=== PATIENT | female | born 1960 ===

== ENCOUNTER 2019-03-12 10:45 | Day surgery (SDC) | payer OTHER | END 2019-03-12 14:32 | disposition home or self-care (01) | LOC: AMB-ENDOS 10:45 | DX: C19 Malignant neoplasm of rectosigmoid junction (principal); K64.8 Other hemorrhoids ==

== ENCOUNTER 2019-03-21 07:31 | Outpatient (CLI) | payer OTHER | END 2019-03-21 07:57 | disposition home or self-care (01) | LOC: NUCLEAR 07:31 | DX: I65.23 Occlusion and stenosis of bilateral carotid arteries (principal); G47.30 Sleep apnea, unspecified; I20.9 Angina pectoris, unspecified; J45.901 Unspecified asthma with (acute) exacerbation | CPT/HCPCS: 78452; 93017; A9500; J0153 ==

== ENCOUNTER 2019-04-08 11:45 | Inpatient (IN) | payer OTHER ==
[~2019-04-08] VITALS: Ht 154.9 cm; Wt 85.7 kg
[2019-04-08] MEDS ORDERED: BENICAR40 MG PO (13:13)
[2019-04-08] MEDS ORDERED: CATAPRES0.3 M1 PO (13:13)
[2019-04-08] MEDS ORDERED: PROPANADOL PO (13:14)
[2019-04-08] MEDS ORDERED: ZYRTEC10 M3 PO (13:15)
[2019-04-08] MEDS ORDERED: CRESTOR5 MG PO (13:15)
[2019-04-08] MEDS ORDERED: FIBRIK CAPSULE1 EACH PO (13:16)
[2019-04-08] MEDS ORDERED: TORSEMIDE5 MG PO (13:16)
[2019-04-08] MEDS ORDERED: PEPCID AC20 MG PO (13:16)
[2019-04-08] MEDS ORDERED: XOPENEX HFA15 GM IH (13:17)
== END 2019-04-21 10:32 | disposition home or self-care (01) | DRG 331 ==
LOC: O/R 11:45 → SURH 04-18 08:14 → O/R 04-18 09:00 → SURH 04-18 20:21
PROVIDERS: ADMIT Colon & Rectal Surgery
PROC: 07TB4ZZ Resection of Mesenteric Lymphatic, Percutaneous Endoscopic Approach (ICD-10-PCS; 2019-04-18)
PROC: 0DJD8ZZ Inspection of Lower Intestinal Tract, Via Natural or Artificial Opening Endoscopic (ICD-10-PCS; 2019-04-18)
PROC: 4A1BXSH Monitoring of Gastrointestinal Vascular Perfusion using Indocyanine Green Dye, External Approach (ICD-10-PCS; 2019-04-18)
PROC: 3E0F7GC Introduction of Other Therapeutic Substance into Respiratory Tract, Via Natural or Artificial Opening (ICD-10-PCS; 2019-04-18)
PROC: 0DTN4ZZ Resection of Sigmoid Colon, Percutaneous Endoscopic Approach (ICD-10-PCS; principal; 2019-04-18 09:00)
PROC: 4A12X4Z Monitoring of Cardiac Electrical Activity, External Approach (ICD-10-PCS; 2019-04-19)
PROC: 4A033R1 Measurement of Arterial Saturation, Peripheral, Percutaneous Approach (ICD-10-PCS; 2019-04-19)
DX: C19 Malignant neoplasm of rectosigmoid junction (principal); R59.0 Localized enlarged lymph nodes; I11.9 Hypertensive heart disease without heart failure; G47.33 Obstructive sleep apnea (adult) (pediatric); R73.01 Impaired fasting glucose; E66.8 Other obesity; J45.20 Mild intermittent asthma, uncomplicated; D64.89 Other specified anemias

== ENCOUNTER 2019-04-22 20:33 | Emergency (ER) | payer OTHER ==
[~2019-04-22] VITALS: Ht 154.9 cm; Wt 86.6 kg
[~2019-04-22 20:33] MED LIST: BENICAR40 MG PO; CATAPRES0.3 M1 PO; CRESTOR5 MG PO; FIBRIK CAPSULE1 EACH PO; PEPCID AC20 MG PO; PROPANADOL PO; TORSEMIDE5 MG PO; XOPENEX HFA15 GM IH; ZYRTEC10 M3 PO
== END 2019-04-23 00:08 | disposition home or self-care (01) ==
LOC: ER 20:33
DX: T85.898A Other specified complication of other internal prosthetic devices, implants and grafts, initial encounter (principal)